=== PATIENT | male | born 1950 | race Caucasian/White ===

== ENCOUNTER 2017-11-15 07:34 | Inpatient (IN) | payer OTHER ==
[2017-11-13 11:51] VITALS: BMI 58.1
[~2017-11-15 07:34] MED LIST: BUPIVACAINE HCL/PF 0.5% (5MG/ML) 10 ML VIAL IJ ONE
--- NOTE | 2017-11-15 09:29 | HP ---
History & Physical Update - History History: No Change - Physical Physical: No Change - Assessment Assessment: No Change - Plan Plan: No Change Currently as noted:: Robotic possible open vertical sleeve gastrectomy
[2017-11-15] MEDS ORDERED: MIDAZOLAM HCL 2 MG/2 ML SINGLE DOSE VIAL ONE (09:41)
[2017-11-15] MEDS ORDERED: ROCURONIUM BROMIDE 50 MG/5 ML VIAL ONE ×2 (09:41→10:36)
[2017-11-15] MEDS ORDERED: fentaNYL CITRATE 250 MCG/5 ML VIAL ONE (09:41)
[2017-11-15] MEDS ORDERED: SUCCINYLCHOLINE CHLORIDE 200 MG/10 ML VIAL ONE (09:41)
[2017-11-15] MEDS ORDERED: PROPOFOL 20 ML ONE ×2 (09:41)
[2017-11-15] MEDS ORDERED: ceFAZolin SODIUM 1 GM VIAL ONE (09:42)
[2017-11-15] MEDS ORDERED: DEXAMETHASONE SOD PHOSPHATE 4 MG/1 ML VIAL ONE ×2 (09:42→11:54)
[2017-11-15] MEDS ORDERED: LIDOCAINE HCL/PF 2% SDV 5ML VIAL ONE (09:42)
[2017-11-15] MEDS ORDERED: ceFAZolin SODIUM 1 GM VIAL IVPB ONE (10:10)
[2017-11-15] MEDS ORDERED: ePHEDrine SULFATE 50 MG/1 ML AMPULE ONE (10:17)
[2017-11-15] MEDS ORDERED: DESFLURANE GAS 240 ML BOTTLE IH ONE (11:34)
[2017-11-15] MEDS ORDERED: NEOSTIGMINE METHYLSULFATE 0.5 MG/ML - 10 ML MDV ONE (11:50)
[2017-11-15] MEDS ORDERED: GLYCOPYRROLATE 0.2 MG/1 ML VIAL ONE (11:52)
[2017-11-15] MEDS ORDERED: LORazepam 2 MG/ML SDV VIAL IVPUSH ONE (13:11)
[2017-11-15] MEDS ORDERED: HYDROmorphone HCL CARPU-JECT 2 MG/1 ML DISP.SYRIN ONE ×2 (13:12→14:26)
[2017-11-15] MEDS: HYDROmorphone HCL CARPU-JECT 1 MG/1 ML DISP.SYRIN IVPUSH PRN ×3 (13:15→14:20)
--- NOTE | 2017-11-15 13:16 | OP ---
<Annette Jasso - Last Filed: 11/15/17 13:14> Operative Note - Note: Operative Date: 11/15/17 Pre-Operative Diagnosis: morbid obesity Operation: laparoscopic gastric sleeve Post-Operative Diagnosis: Same as Pre-op Surgeon: Romie Dickinson Floating Derrick Operator: Annette Jasso Specimens Removed: portion of stomach Estimated Blood Loss (mls): 10 Fluid Volume Replaced (mls): 1,900 Operative Report Dictated: Yes <Romie Dickinson - Last Filed: 11/15/17 13:26> Operative Note - Note: Operation: Laparoscopic vertical sleeve gastrectomy, EGD Anesthesia: General Specimens Removed: Greater curvature of the stomach Estimated Blood Loss (mls): 30 Drains & Tubes with Location: 40 Fr bougie Operative Report Dictated: Yes
--- NOTE | 2017-11-15 13:18 | SURG ---
Surgery Operating Table Assembler Note Operating Table Assembler: Annette Jasso PA-C Date of Service: 11/15/17 Diagnosis: morbid obesity Procedure: laparoscopic gastric sleeve I was present for the entirety of the operative procedure. For further detail, please refer to operative report. Visit type - Case Type Case Type: Scheduled Admission - Emergency Emergency Visit: No - New patient This patient is new to me today: Yes Date on this admission: 11/15/17
[2017-11-15] MEDS ORDERED: HYDROmorphone HCL CARPU-JECT 1 MG/1 ML DISP.SYRIN IVPB PRN (13:22)
[2017-11-15] MEDS: ACETAMINOPHEN 1000 MG/100 ML VIAL (NON FORMULARY) IVPB SCH ×2 (14:00→20:27)
[2017-11-15] MEDS: METOCLOPRAMIDE HCL INJECTION 10 MG/2 ML VIAL IVPUSH SCH ×2 (14:05→19:12)
[2017-11-15 14:07] LABS: BASO % 0.2 % (0-2.0); EOS % 0.1 % (0-4.5); HEMOGLOBIN 12.7 GM/dL (11.7-16.9); MCH 29.9 pg (25.7-33.7); MCHC 32.6 g/dl (32.0-35.9); MEAN CELL VOLUME 91.7 fl (80-96); MEAN PLT VOLUME 8.5 fl (7.5-11.1); MONO % 2.8 % (3.8-10.2); NEUT % 85.9 % (42.8-82.8); PLATELET COUNT 251 K/MM3 (134-434); RBC 4.25 M/mm3 (4.00-5.60); RDW 13.3 % (11.9-15.9); WHITE BLOOD COUNT 14.9 K/mm3 (4.0-10.0)
[2017-11-15] MEDS ORDERED: ONDANSETRON 4 MG/2 ML VIAL ONE (14:15)
[2017-11-15] MEDS ORDERED: METOCLOPRAMIDE HCL INJECTION 10 MG/2 ML VIAL ONE (14:15)
[2017-11-15] MEDS ORDERED: ACETAMINOPHEN INJECTION 100 ML IVPB ONE (14:16)
--- NOTE | 2017-11-15 14:17 | SPEC ---
DATE OF OPERATION: 11/15/2017 SURGEON: Chalino Dickinson MD TOOL AND DIE TECHNICIAN: Annette Jasso and CATINA Ag. PREOPERATIVE DIAGNOSIS: Morbid obesity, body mass index (BMI) of 58.1. POSTOPERATIVE DIAGNOSIS: Morbid obesity, body mass index (BMI) of 58.1. PROCEDURE: Laparoscopic vertical sleeve gastrectomy and upper endoscopy/esophagogastroduodenoscopy SPECIMEN: Greater curvature of stomach. ESTIMATED BLOOD LOSS: 38 mL. DRAINS: None. ANESTHESIA: GET. REASON FOR PROCEDURE: This is a 67-year-old gentleman who presents for weight loss options. After describing different options, he decided to proceed with a laparoscopic/possible open vertical sleeve gastrectomy, possible liver biopsy, and upper endoscopy. The risks and benefits of the procedure were explained. RISKS AND BENEFITS: After describing the different options for weight loss management, the patient decided to proceed with a laparoscopic, possible open vertical sleeve gastrectomy. The patient was seen by the respective subspecialties and cleared for surgery. The risks and benefits of the procedure were explained. These included bleeding, infection, hernia, OK, DVT, PE, injury to surrounding structures including the liver, colon, bowel, spleen, esophagus, vessel injury, nerve injury, weight regain, gastric leak, staple line leak, sleeve leak, obstruction, vitamin deficiency, hair loss, and as some of the possible complications. The patient understood and signed informed consent. DESCRIPTION OF PROCEDURE: The patient was placed supine on the operating room table. The patient underwent general endotracheal intubation. A Llanos catheter was inserted. The arms were brought out at 90 degrees and secured. A foot board was placed, and the legs were secured laterally with padding. The abdomen was prepped and draped in the usual sterile fashion. A timeout was performed. An incision was made in the left upper quadrant, and a Veress needle inserted. Pneumoperitoneum was established. Subsequently, the Veress needle was removed, and a 12-mm trocar was placed. The laparoscopic camera was inserted, and inspection of the abdominal cavity was performed. An incision was made in the supraumbilical region, and a 15-mm trocar placed under direct visualization. A 5-mm trocar was then placed in the right upper quadrant, and a 5-mm trocar placed below the left subcostal margin. A stab wound was made in the subxiphoid area, and a Radha clamp inserted and removed to dilate the tract. A Garima liver retractor was inserted. The post was secured at the bedside by the nursing staff. The patient was placed in steep reverse Trendelenburg position. The Garima liver retractor was used to secure the liver towards the anterior abdominal wall. The pylorus was identified and 6 cm proximal to it, the lesser sac was entered using the LigaSure device. All lateral attachments to the greater curvature of the stomach including the short gastric vessels were ligated using the LigaSure device toward the gastrosplenic and gastrophrenic ligaments. Once this was done in its entirety, it was confirmed that all tubes within the nasal or oropharyngeal cavity including a temperature probe was removed by Anesthesia. The bougie was then inserted by Anesthesia. Transection of the stomach was then begun staying adjacent to the bougie but away from the angularis. Transection of the stomach was performed near the portion of the stomach where the lesser sac was entered. Two laparoscopic Endo-LEXX black loads were used at this location. Laparoscopic Endo-LEXX purple loads were then used for the remainder of the transection until the greater curvature of the stomach was fully transected. This was done staying close to the bougie. Care was taken to stay away from the angle of His cephalad. The staple line was then inspected. Hemostasis was identified. A leak test was then performed. The stomach was clamped distally to the staple line. Irrigation solution was placed in the left upper quadrant, and air insufflated by Anesthesia into the sleeve. No leaks were identified, and no obstruction was identified. This was done throughout the entirety of the staple line. At this point, the irrigation solution was suctioned, and again hemostasis noted. The 15-mm supraumbilical trocar was then removed, and the specimen removed from the site using a sponge stick gabriel. The specimen was inspected, and a Veress needle inserted. The specimen insufflated adequately, and no leak was identified. The staple line was noted to be intact. A Bao Radha device was then used to temporarily close the fascia with a 0 Vicryl suture at this site. The 15-mm trocar was then reinserted, and the 12-mm trocar in the left upper quadrant removed. The fascia at this site was then closed using a Bao Radha device with a 0 Vicryl suture. Again, hemostasis was noted. The Garima liver retractor was then removed under direct visualization. Pneumoperitoneum was desufflated, and the fascial sutures were secured. Hemostasis was noted at all incision sites, and Marcaine was injected at all incision sites. All incision sites were closed using 4-0 Biosyn. Sterile dressings were applied. In addition, at the end of the case an upper endoscopy/EGD was performed to evaluate for leak and obstruction. The entirety of the staple line and gastric pouch was inspected and hemostasis was noted. No obstruction or leak was noted. The stomach was suctioned and decompressed and the endoscope removed. The patient tolerated the procedure well, and was transferred to the recovery room in stable condition with the Llanos catheter intact. The patient was transferred to telemetry for further monitoring. CHALINO DICKINSON M.D. [id number]
[2017-11-15] MEDS: ONDANSETRON 4 MG/2 ML VIAL IVPUSH SCH ×3 (14:20→22:13)
[2017-11-15 14:32] LABS: ANION GAP 11 (8-16); BLOOD UREA NITROGEN 22 mg/dL (7-18); CALCIUM 8.8 mg/dL (8.5-10.1); CHLORIDE 104 mmol/L (98-107); CO2 24 mmol/L (21-32); CREATININE 0.8 mg/dL (0.7-1.3); GLUCOSE,RANDOM 151 mg/dL (74-106); POTASSIUM 4.1 mmol/L (3.5-5.1); SGOT/AST 35 U/L (15-37); SGPT/ALT 31 U/L (12-78); SODIUM 139 mmol/L (136-145)
[2017-11-15 14:34] LABS: ALK PHOS 97 U/L (45-117); BILIRUBIN,TOTAL 0.4 mg/dL (0.2-1.0); TOT PROT 7.8 g/dl (6.4-8.2)
[2017-11-15] MEDS: SODIUM CHLORIDE 1,000 ML IV SCH ×2 (14:35→22:12)
[2017-11-15] MEDS ORDERED: PT OWN MED DRAWER 7, Y5N ONE ×2 (19:02→22:33)
[2017-11-15] MEDS: HYDROmorphone HCL CARPU-JECT 2 MG/1 ML DISP.SYRIN IVPB PRN (19:20)
[2017-11-15] MEDS ORDERED: ENOXAPARIN NA (PORCINE) 40 MG/0.4 ML DISP.SYRIN SQ SCH (22:00)
[2017-11-15] MEDS: FAMOTIDINE 20 MG/50 ML IVPB 20 MG/50 ML MG IVPB SCH (22:13)
[2017-11-15 22:28] LABS: BASO % 0.2 % (0-2.0); HEMATOCRIT 37.3 % (35.4-49); HEMOGLOBIN 12.4 GM/dL (11.7-16.9); LYMPH % 10.6 % (8-40); MCH 30.4 pg (25.7-33.7); MCHC 33.2 g/dl (32.0-35.9); MEAN CELL VOLUME 91.5 fl (80-96); MONO % 5.3 % (3.8-10.2); NEUT % 83.9 % (42.8-82.8); PLATELET COUNT 263 K/MM3 (134-434); RBC 4.07 M/mm3 (4.00-5.60); RDW 13.3 % (11.9-15.9); WHITE BLOOD COUNT 16.3 K/mm3 (4.0-10.0)
[2017-11-16] MEDS: METOCLOPRAMIDE HCL INJECTION 10 MG/2 ML VIAL IVPUSH SCH ×4 (02:01→19:00)
[2017-11-16] MEDS: ONDANSETRON 4 MG/2 ML VIAL IVPUSH SCH ×6 (02:01→21:00)
[2017-11-16] MEDS: ACETAMINOPHEN 1000 MG/100 ML VIAL (NON FORMULARY) IVPB SCH ×2 (02:02→06:57)
[2017-11-16 07:21] LABS: ALBUMIN 2.6 g/dl (3.4-5.0); ALK PHOS 76 U/L (45-117); ANION GAP 8 (8-16); BILIRUBIN,TOTAL 0.5 mg/dL (0.2-1.0); BLOOD UREA NITROGEN 17 mg/dL (7-18); CALCIUM 7.8 mg/dL (8.5-10.1); CHLORIDE 107 mmol/L (98-107); CO2 24 mmol/L (21-32); CREATININE 0.6 mg/dL (0.7-1.3); GLUCOSE,RANDOM 104 mg/dL (74-106); SGPT/ALT 48 U/L (12-78); SODIUM 139 mmol/L (136-145); TOT PROT 6.7 g/dl (6.4-8.2)
[2017-11-16 07:34] LABS: SGOT/AST 64 U/L (15-37)
[2017-11-16] MEDS ORDERED: oxyCODONE HCL 5 MG TABLET PO PRN (09:23)
[2017-11-16] MEDS ORDERED: ACETAMINOPHEN 325 MG TABLET (FP) PO PRN (09:23)
[2017-11-16] MEDS ORDERED: SODIUM CHLORIDE 1,000 ML IV SCH (09:30)
[2017-11-16] MEDS: ENOXAPARIN NA (PORCINE) 40 MG/0.4 ML DISP.SYRIN SQ SCH ×2 (09:51→21:00)
[2017-11-16] MEDS: FAMOTIDINE 20 MG/50 ML IVPB 20 MG/50 ML MG IVPB SCH ×2 (09:51→21:01)
[2017-11-16] MEDS: HYDROmorphone HCL CARPU-JECT 2 MG/1 ML DISP.SYRIN IVPB PRN ×2 (10:02→22:03)
--- NOTE | 2017-11-16 10:11 | PN ---
Progress Note (short form) - Note Progress Note: POD#1 Pt oob to chair. No CP/SOB. Had upper GI series test completed. He had some black colored emesis overnight. Vital Signs Period Temp Pulse Resp BP Sys/Mayberry Pulse Ox Last 24 Hr 97.6 F-98.4 F 69-96 16-20 113-170/58-91 95-99 GEN: A&0x3, NAD oob to chair CV: RRR Lungs: CTA b/l anteriorly ABD: soft, obese, non-distended. Inc c/d/i. Changed outer dressing to right of abd incision. No bleeding noted. Incisional tenderness. CBC, BMP 11/16/17 05:35 11/16/17 05:35 Laboratory Tests 11/15/17 11/15/17 13:15 22:00 WBC 14.9 H 16.3 H Hgb 12.7 12.4 Hct 39.0 37.3 Plt Count 251 263 UGI- no evidence of leak or extravasation A/P: POD#1 s/p lap sleeve gastrectomy begin stage 1 diet, oob to chair with eating OOB ambulate DVT ppx Pepcid IV <Janell Loyola - Last Filed: 11/16/17 10:15> - Note Progress Note: POD 1 Doing well No nausea Vital Signs Period Temp Pulse Resp BP Sys/Mayberry Pulse Ox Last 24 Hr 97.4 F-98.4 F 69-87 20-20 113-165/58-74 95-95 Abd soft, ND CBC, BMP 11/16/17 09:40 11/16/17 05:35 UGI: no leak/obstruction Clears Ambulate <Romie Dickinson - Last Filed: 11/16/17 17:35>
[2017-11-16 10:30] LABS: BASO % 0.3 % (0-2.0); HEMOGLOBIN 11.9 GM/dL (11.7-16.9); LYMPH % 20.6 % (8-40); MCH 30.2 pg (25.7-33.7); MCHC 33.1 g/dl (32.0-35.9); MEAN CELL VOLUME 91.3 fl (80-96); MEAN PLT VOLUME 7.9 fl (7.5-11.1); MONO % 9.7 % (3.8-10.2); NEUT % 68.4 % (42.8-82.8); PLATELET COUNT 221 K/MM3 (134-434); RBC 3.94 M/mm3 (4.00-5.60); RDW 13.1 % (11.9-15.9); WHITE BLOOD COUNT 11.6 K/mm3 (4.0-10.0)
--- NOTE | 2017-11-16 10:50 | PN ---
Progress Note (short form) - Note Progress Note: Post op day#1.S/P Laproscopic Gastric sleeve placement under GA uneventful.Patient stable.No any anesthesia related problem.Patient DC from the anesthesia care.
[2017-11-17] MEDS: METOCLOPRAMIDE HCL INJECTION 10 MG/2 ML VIAL IVPUSH SCH ×2 (02:42→06:54)
[2017-11-17] MEDS: ONDANSETRON 4 MG/2 ML VIAL IVPUSH SCH ×3 (02:42→09:01)
[2017-11-17 06:13] VITALS: BP 138/64; PULSE 72; TEMP 98.3
[2017-11-17] MEDS: ENOXAPARIN NA (PORCINE) 40 MG/0.4 ML DISP.SYRIN SQ SCH (09:00)
[2017-11-17] MEDS: FAMOTIDINE 20 MG/50 ML IVPB 20 MG/50 ML MG IVPB SCH (09:01)
--- NOTE | 2017-11-19 13:00 | PATH ---
Surgical Pathology Report Patient Name: ANNA KNAPP [facility]. Rec. #: [id number] /Age/Gender: 1950 (Age: 67) / M Account: [id number] Location: 4 SO PEDS/ADOL Taken: 11/15/2017 Received: 11/16/2017 Reported: 11/19/2017 Physicians: Romie Dickinson M.D. Specimen(s) Received GREATER CURVATURE STOMACH Clinical History Morbid obesity Final Diagnosis STOMACH, GREATER CURVATURE, LAPAROSCOPIC VERTICAL SLEEVE GASTRECTOMY: PORTION OF STOMACH WITH MODERATE CHRONIC GASTRITIS. IMMUNOHISTOCHEMICAL STAIN FOR H. PYLORI IS POSITIVE ([place]). Electronically Signed Yanet Sheppard M.D. Gross Description Received in formalin labeled "greater curvature of stomach," is a 142 g aggregate of 2 portions of stomach measuring 4.5 x 3.3 x 2.3 cm and 16.5 x 4.0 x 3.8 cm. Both portions display a stapled margin of resection. The serosa is royal-vaughn with minimal attached fat. The mucosa is royal-pink and focally hyperemic with normal folds. No mucosal masses are identified. [employer] sections are submitted in one cassette. /11/16/2017 saudi11/16/2017
--- NOTE | 2017-11-19 21:50 | EKG ---
Test Reason : Blood Pressure : / mmHG Vent. Rate : 069 BPM Atrial Rate : 069 BPM P-R Int : 168 ms QRS Dur : 086 ms QT Int : 442 ms P-R-T Axes : 047 022 030 degrees QTc Int : 473 ms NORMAL SINUS RHYTHM NORMAL ECG NO PREVIOUS ECGS AVAILABLE Confirmed by HERMAN FRANCO, HARPER ([id number]) on 11/19/2017 9:49:45 PM Referred By: Romie Dickinson Confirmed By:HARPER SUTTON MD
== END 2017-11-17 09:45 | disposition home or self-care (01) | DRG 621 ==
LOC: JSAMEDAYSX 07:34 → EDSTATUS 09:00 → J4S 14:56
PROVIDERS: ADMIT Surgery; ATTEND Surgery
PROC: 0DB64Z3 Excision of Stomach, Percutaneous Endoscopic Approach, Vertical (ICD-10-PCS; principal; 2017-11-15 09:30)
PROC: 0DJ08ZZ Inspection of Upper Intestinal Tract, Via Natural or Artificial Opening Endoscopic (ICD-10-PCS; 2017-11-15 09:30)
DX: E66.01 Morbid (severe) obesity due to excess calories (principal); Z68.43 Body mass index [BMI] 50.0-59.9, adult; K29.50 Unspecified chronic gastritis without bleeding; B96.81 Helicobacter pylori [H. pylori] as the cause of diseases classified elsewhere
CPT/HCPCS: 36415; 74241-TC; 80053; 85025; 86850; 86900; 86901; 88307-TC; 93005; 93010; 94760